=== PATIENT | male | born 1985 | race Caucasian/White ===

== ENCOUNTER 2017-04-27 14:04 | Inpatient (IN) | payer OTHER ==
[~2017-04-27] VITALS: Ht 167.6 cm; Wt 105.1 kg
[2017-04-27 14:44] LABS: HEMATOCRIT 40.2 % (38.0-50.0); MCH 28.2 PG (29.0-34.0); MCHC 32.8 G/DL (30.0-36.0); MCV 85.9 FL (86-99); MEAN PLAT.VOLUME 8.9 uM^3 (9.0-12.4); PLATELET COUNT 342 K/uL (156-360); RBC DIS.WIDTH-CV 11.9 % (11.8-14.6); RBC DIS.WIDTH-SD 37.6 % (39-53); RED BLOOD COUNT 4.68 M/uL (4.00-5.50); WHITE BLOOD COUNT 18.5 K/uL (4.1-10.2)
[2017-04-27 14:54] LABS: CHLORIDE 102 mEq/L (99-109); POTASSIUM 3.7 mEq/L (3.7-5.4); SODIUM 136 mEq/L (136-147)
[2017-04-27] MEDS ORDERED: PROAIR RESPICL90 MCG IH (14:55)
[2017-04-27 14:56] LABS: GLUCOSE 147 mg/dL (70-99)
[2017-04-27 14:57] LABS: ANION GAP 10 MEQ/L (2-14)
[2017-04-27 14:58] LABS: TOTAL BILIRUBIN 0.6 mg/dL (0.0-1.0)
[2017-04-27 14:59] LABS: ALKALINE PHOSPHATASE 71 IU/L (3-129)
[2017-04-27 15:00] LABS: GFR ESTIMATE (CALCULATED) > 59 mL/min/
[2017-04-27 15:01] LABS: UREA NITROGEN (BUN) 16 mg/dL (9-23)
[2017-04-27] MEDS ORDERED: PROVENTIL,2.5 MG/3 M IH (15:58)
[2017-04-27 16:52] LABS: ADD MIUA? NO; BILIRUBIN NEGATIVE; BLOOD NEGATIVE; COLOR STRAW ((YELLOW)); GLUCOSE (STRIP) NEGATIVE; KETONES NEGATIVE; LEUKOCYTES NEGATIVE; NITRITE NEGATIVE; PROTEIN (STRIP) NEGATIVE; SPECIFIC GRAVITY 1.045 (1.000-1.030); UROBILINOGEN 0.2 MG/DL (0.2-1.0)
[2017-04-27 17:26] LABS: UCUL ADDED? NO
[2017-04-27 22:46] VITALS: BP 136/83
[2017-04-28 03:46] VITALS: BP 128/82
[2017-04-28 07:29] VITALS: BP 120/72
[2017-04-28 07:49] LABS: ANION GAP 10 MEQ/L (2-14); CHLORIDE 103 MEQ/L (99-109); GFR ESTIMATE (CALCULATED) > 59 mL/min/; GLUCOSE 157 mg/dL (70-99); POTASSIUM 4.4 MEQ/L (3.7-5.4); SAMPLE HEMOLYSIS CHECK 0; SAMPLE ICTERIC CHECK 0; SAMPLE LIPEMIA CHECK 0; SODIUM 135 MEQ/L (136-147); UREA NITROGEN (BUN) 12 mg/dL (9-23)
[2017-04-28 08:03] LABS: HEMATOCRIT 33.9 % (38.0-50.0); MCH 28.9 PG (29.0-34.0); MCV 87.4 FL (86-99); PLATELET COUNT 295 K/uL (156-360); RBC DIS.WIDTH-SD 38.9 % (39-53); RED BLOOD COUNT 3.88 M/uL (4.00-5.50); WHITE BLOOD COUNT 16.8 K/uL (4.1-10.2)
[2017-04-28 11:33] VITALS: BP 130/86
[2017-04-28 15:20] VITALS: BP 120/74
[2017-04-28 19:11] VITALS: BP 125/84
[2017-04-29] VITALS (7 sets, daily range): BP systolic 121–144; BP diastolic 60–91
[2017-04-30 03:22] VITALS: BP 118/85
[2017-04-30 07:45] VITALS: BP 140/91
[2017-04-30 11:12] VITALS: BP 125/81
[2017-04-30 15:25] VITALS: BP 135/98
[2017-04-30 20:42] VITALS: BP 153/96
[2017-04-30 23:43] VITALS: BP 134/79
[2017-05-01 03:44] VITALS: BP 126/81
[2017-05-01 07:23] LABS: EOSINOPHIL COUNT 0.3 K/uL (0-0.3); HEMATOCRIT 32.7 % (38.0-50.0); IMMATURE GRANULOCYTE (%) 0.8 % (0.0-0.7); IMMATURE GRANULOCYTE COUNT 0.1 K/uL; INSTRUMENT ABS NEUTROPHIL CT 7.9 K/uL; LYMPHOCYTE COUNT 1.3 K/uL (1.0-2.8); MCH 28.7 PG (29.0-34.0); MCHC 32.7 G/DL (30.0-36.0); MCV 87.7 FL (86-99); MEAN PLAT.VOLUME 9.2 uM^3 (9.0-12.4); MONOCYTE (%) 7.2 % (3-12); MONOCYTE COUNT 0.8 K/uL (0-0.8); NEUTROPHIL (%) 76.2 % (45-76); NEUTROPHIL COUNT 7.9 K/uL (1.8-6.4); PLATELET COUNT 321 K/uL (156-360); RBC DIS.WIDTH-CV 12.2 % (11.8-14.6); RBC DIS.WIDTH-SD 39.7 % (39-53); RED BLOOD COUNT 3.73 M/uL (4.00-5.50); WHITE BLOOD COUNT 10.4 K/uL (4.1-10.2)
[2017-05-01 07:46] LABS: ANION GAP 7 MEQ/L (2-14); CHLORIDE 104 MEQ/L (99-109); GFR ESTIMATE (CALCULATED) > 59 mL/min/; SAMPLE HEMOLYSIS CHECK 0; SAMPLE ICTERIC CHECK 0; SAMPLE LIPEMIA CHECK 0; SODIUM 139 MEQ/L (136-147); UREA NITROGEN (BUN) 7 mg/dL (9-23)
[2017-05-01 07:48] LABS: GLUCOSE 98 mg/dL (70-99)
[2017-05-01 09:09] VITALS: BP 131/86
[2017-05-01 11:56] VITALS: BP 134/91
[2017-05-01 15:47] VITALS: BP 141/82
[2017-05-02 00:33] VITALS: BP 128/74
[2017-05-02] MEDS ORDERED: FLAGYL500 MG PO (07:19)
[2017-05-02 08:07] VITALS: BP 133/94
[2017-05-02 16:01] VITALS: BP 131/87
[2017-05-02 23:49] VITALS: BP 134/88
[2017-05-03 07:25] VITALS: BP 138/86
[2017-05-03] MEDS ORDERED: HYDROCODON-ACE1 EA11 PO (10:01)
== END 2017-05-03 10:44 | disposition home or self-care (01) | DRG 853 ==
LOC: EME 14:04 → EDOF 16:54 → 2EAST 16:54 → ENRESERV 17:13 → 2EAST 22:34
PROVIDERS: Surgery
PROC: 0DTJ0ZZ Resection of Appendix, Open Approach (ICD-10-PCS; principal; 2017-04-27)
DX: A41.9 Sepsis, unspecified organism (principal); K35.3 Acute appendicitis with localized peritonitis; B96.20 Unspecified Escherichia coli [E. coli] as the cause of diseases classified elsewhere; B96.5 Pseudomonas (aeruginosa) (mallei) (pseudomallei) as the cause of diseases classified elsewhere; K56.7 Ileus, unspecified; K38.1 Appendicular concretions; I10 Essential (primary) hypertension; R33.9 Retention of urine, unspecified; E66.9 Obesity, unspecified; J45.909 Unspecified asthma, uncomplicated; Z68.37 Body mass index [BMI] 37.0-37.9, adult
CPT/HCPCS: 74177; 80048; 80053; 81003; 85025; 85027; 87040; 87070; 87075; 87076; 87077; 87086; 87185; 87186; 87205; 88304; 94640; 94799; 99202; 99281; 99283; J0330; J0690; J0692; J0696; J1100; J1170; J1650; J1885; J1956; J2270; J2405; J2710; J2765; J3010; J3480; J7030; J7042; J7050; J7120; S0020; S0030